=== PATIENT | male | born 1980 | race Caucasian/White ===

== ENCOUNTER 2019-06-16 00:42 | Emergency (ER) | payer OTHER ==
[~2019-06-16] VITALS: Ht 172.7 cm; Wt 110.9 kg
[2019-06-16 00:51] VITALS: BP 192/105
[2019-06-16 01:06] LABS: CLARITY,URINE CLEAR (Clear); COLOR,URINE YELLOW (Yellow); GLUCOSE, URINE NEGATIVE (Neg); KETONES,URINE NEGATIVE (Neg); LEUKOCYTE ESTERASE ,URINE NEGATIVE (Neg); NITRITES, URINE NEGATIVE (Neg); OCCULT BLOOD,URINE NEGATIVE (Neg); PH,URINE 5.5 (4.8-8.0); PROTEIN,URINE NEGATIVE (Neg); UROBILINOGEN,URINE 0.2 E.U/dL (0.2-1.0)
[2019-06-16 01:10] LABS: UA COLLECTION TYPE CLN CATCH MIDSTREAM
[2019-06-16] MEDS ORDERED: levoFLOXACIN 250mg tablet PO ONE (01:25)
[2019-06-16] MEDS ORDERED: pyridoxine 50mg tablet PO SCH (01:25)
[2019-06-16] MEDS ORDERED: PHEN-716 PO (01:34)
[2019-06-16] MEDS ORDERED: LEVO500T2 PO (01:34)
[2019-06-16] MEDS ORDERED: phenazopyridine 100mg tablet PO ONE (01:55)
== END 2019-06-16 02:03 | disposition home or self-care (01) ==
LOC: ER 00:43
DX: N41.9 Inflammatory disease of prostate, unspecified (principal); Z88.0 Allergy status to penicillin; Z79.899 Other long term (current) drug therapy
CPT/HCPCS: 36415; 81003; 87491; 99283

== ENCOUNTER 2019-10-09 13:55 | Emergency (ER) | payer OTHER ==
[~2019-10-09] VITALS: Ht 175.3 cm; Wt 100.0 kg
[~2019-10-09 13:55] MED LIST: PHEN-716 PO; TAM75C PO
[2019-10-09 14:05] VITALS: BP 165/92
== END 2019-10-09 14:30 | disposition home or self-care (01) ==
LOC: ER 13:56
DX: J22 Unspecified acute lower respiratory infection (principal); Z20.828 Contact with and (suspected) exposure to other viral communicable diseases; M79.10 Myalgia, unspecified site; Z88.0 Allergy status to penicillin; Z87.440 Personal history of urinary (tract) infections
CPT/HCPCS: 87635; 99283